=== PATIENT | female | born 1965 | race Caucasian/White ===

== ENCOUNTER 2021-07-25 17:07 | Emergency (ER) | payer BC ==
[2021-07-25 20:46] LABS: BUN/CREATININE RATIO 13 (0-10)
[2021-07-25 21:01] LABS: HEMOGLOBIN 15.2 gm/dl (12.3-15.3); RED BLOOD COUNT 5.25 M/UL (4.00-5.10); WHITE BLOOD COUNT 11.9 K/UL (4.5-11.0)
[2021-07-25] MEDS ORDERED: ONDANSETRON ODT4 MG SL (21:44)
[2021-07-25] MEDS ORDERED: TORADOL 10 MG T10 MG PO (21:44)
== END 2021-07-25 22:40 | disposition home or self-care (01) ==
LOC: ER1 17:07
PROVIDERS: Physician Assistant
DX: K42.9 Umbilical hernia without obstruction or gangrene (principal); I10 Essential (primary) hypertension; Z90.49 Acquired absence of other specified parts of digestive tract; Z90.89 Acquired absence of other organs; Z90.710 Acquired absence of both cervix and uterus; Z79.01 Long term (current) use of anticoagulants
CPT/HCPCS: 80053; 81001; 83690; 85025; 87086; 96374; 96375; 99284; J1885; J2405